=== PATIENT | female | born 2000 | race Caucasian/White ===

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

== ENCOUNTER 2024-06-01 07:41 | Inpatient (IN) ==
[2024-06-01] MEDS ORDERED: LIDOCAINE 1% LOCAL 20 ML VIAL INFIL PRN (07:56)
[2024-06-01 08:28] LABS: Hematocrit (blood only) 34.9 % (37.0-47.0); Hemoglobin 12.3 g/dl (12.0-16.0); Mean Corpuscular Hemoglobin 31.1 pg (25.0-34.0); Mean Corpuscular Hgb Conc 35.2 g/dL (32.0-36.0); Mean Corpuscular Volume 88.4 fL (80.0-100.0); Mean Platelet Volume 11.3 fL (9.4-12.4); Platelet Count 218 K/uL (130-400); RDW Coefficient of Variation 13.3 % (11.5-14.5); RDW Standard Deviation 43.4 fL (36.4-46.3); Red Blood Count 3.95 M/uL (4.20-5.40); White Blood Count 10.95 K/ul (4.8-10.8)
[2024-06-01] MEDS: OXYTOCIN 30 UNITS/NSS 30 UNITS/500 ML BAG IV PRN (08:30)
[2024-06-01] MEDS: LACTATED RINGER'S 1,000 ML IV SCH (08:30)
[2024-06-01 08:45] LABS: Alanine Aminotransferase 14 U/L (7-52); Albumin Globulin Ratio 1.3 (0.9-2); Albumin Level 3.5 gm/dl (3.4-5.0); Alkaline Phosphatase 148 U/L (34-104); Anion Gap 7 (3-11); Aspartate Aminotransferase 18 U/L (13-39); BUN Creatinine Ratio 15.9 (10-20); Bilirubin Direct 0.1 mg/dl (0-0.2); Bilirubin,Total 0.4 mg/dl (0.2-1.0); Blood Urea Nitrogen 10 mg/dl (6-23); Carbon Dioxide 22 mmol/L (21-32); Chloride 108 mmol/L (98-107); Globulin 2.7 gm/dl (2.5-4.0); Glucose 105 mg/dl (70-99(Fasting)); Potassium 4.3 mmol/L (3.5-5.1); Sodium 137 mmol/L (136-145); Total Protein 6.2 gm/dl (6.0-8.3)
--- NOTE | 2024-06-01 09:17 | History & Physical Report ---
Date of Service June 01, 2024 Assessment & Plan (1) 37 weeks gestation of : (2) Pre-eclampsia superimposed on chronic hypertension: (3) Encounter for induction of labor: Plan admit, iv, labs. hinton placed. fhts categ 1. add pitocin. denies concerns. Admission and Anticipated Discharge Date Admission Date: June 01, 2024 History of Present Illness Chief Complaint: induction Primary Care Provider: Carlotta Tirado, DO 24yo at 37+wks kamari presents to LD with cc of chtn with superimposed preeclampsia for planned induction. She has unfavorable cx based on exam yesterday in office, with plan for hinton balloon placement and pitocin today. No concerns. No plasencia. Some swelling. No ctx, rom or vb. +FM. PNC c/b 1. CHTN on meds 2. history of CT, treated, neg at 36wks. PNL rh pos, ri, gbs neg OBH: g1 GYNH: nl paps, CT+ this Allergies Allergy/AdvReac Type Severity Reaction Status Date / Time No Known Drug Allergies Allergy Unknown Verified 06/01/24 08:12 Home Medications Medication Instructions Recorded Confirmed Type famotidine 20 mg tablet 20 mg PO BID #180 tabs 12/07/23 06/01/24 Rx fluoxetine 20 mg capsule 20 mg PO DAILY #90 caps 12/26/23 06/01/24 Rx aspirin 81 mg capsule 81 mg PO DAILY 04/30/24 06/01/24 History vits no.124-ferrous fum 1 tab PO DAILY 04/30/24 06/01/24 History 27 mg iron-folic acid 800 mcg tablet ( Vitamin) breast pump #1 ea 05/07/24 05/31/24 Rx labetalol 200 mg tablet 200 mg PO BID #60 tabs 05/25/24 06/01/24 Rx Patient History Medical History Varicella vaccination Weight gain Menorrhagia Facial trauma Concussion Closed head injury Surgical History No pertinent past surgical history Family History Grandmother Breast cancer Stroke Hypertension Mother Hypertension Grandfather Lung cancer Denies family history of Rheumatoid arthritis Sudden SIDS (sudden infant syndrome) Ovarian cancer Prostate cancer Diabetes Deep vein thrombosis Osteoporosis Coronary heart disease Dyslipidemia Cerebral aneurysm Alzheimer disease Bipolar disorder Clotting disorder Crohn's disease Dementia Depression Heart disease Kidney disease Myocardial infarction Osteoarthritis Schizophrenia Congenital kidney disease Gestational diabetes COPD (chronic obstructive pulmonary disease) Colorectal cancer Pulmonary embolism Lung disease Cancer Ulcerative colitis Colonic polyp Asthma Cystic kidney disease Social History Smoking Status: Never smoker Do You Dip or Chew Tobacco: No; Hx Alcohol Use: No Hx Substance Use: No Preferred Language: Romanian Communication Ability: Effective Visual Impairment: No Limitations Hearing Ability: Normal Machine Filler Shredder Required: No Beliefs That Will Affect Care: None marital status: marital status details: Ashwin Nielsen (25) [phone] Current Living Situation: Spouse Current Living Situation Comment: Patient lives with spouse, 2 dogs current occupational status: employed current occupation: [employer] Feels Safe at Home: Yes Safety Concerns: Feels Safe At This Time Childhood Exposure to Second-Hand Smoke: No during the past year weight has: remained stable Dental Care, Regularly: Yes Physical Activity Frequency: 1-2 Times per Week Seatbelt Use: always Sunscreen Use: No Review of Systems as per Subjective / HPI Physical Exam Constitutional: WD/WN, vitals as above Respiratory: normal respiratory effort, lungs clear to auscultation Cardiovascular: Rate/Rhythm: regular rate and regular rhythm Gastrointestinal (Abdomen): soft gravid nt efw 7-8# Musculoskeletal: Tr edema nontender calves Neurologic: pateller dtrs 0-+1 no clonus Psychiatric: A+Ox3, euthymic affect Genitourinary: Manual OB Exam: + cervical dilation (visually fingertip) OB Exam Monitor Tracing: + external FHT monitor used, + external uterine monitor used (no ctx), + category I and + normal FHT variability PROCEDURE: sse cx visualized, grasped on ant lip with ring forcep, hinton through os and balloon inflated with 40cc sterile water. Spec removed, hinton taped to leg. pt kiran well. Results & Data Vital Signs (Past 12 Hours) Vital Signs Temp Pulse Resp BP 06/01/24 08:40 98.6 F 85 16 141/78 H 06/01/24 08:38 85 141/78 H 06/01/24 07:57 78 152/94 H Coding Level of Care Code None Diagnoses 37 weeks gestation of Z3A.37 Pre-eclampsia superimposed on chronic hypertension O11.9 Encounter for induction of labor Z34.90 CPT Codes Misx Procedure Codes - 50432 Placement of cervical dilator: 69613 Placement of cervical dilator ([id number])
--- NOTE | 2024-06-01 13:36 | Labor Progress Brief Note ---
Date of Service June 01, 2024 Subjective hinton bulb out, worse than period cramps but manageable Assessment & Plan (1) 37 weeks gestation of : (2) Pre-eclampsia superimposed on chronic hypertension: (3) Encounter for induction of labor: Plan 24 yo G1 at 37 1/7 [facility]ga presents for cHTN w/ superimposed pre-eclampsia w/o SF iol VSS, mild range Fetus cat 1 Labor - pit at 19, pt agreeable to arom. Continue induction GBS neg epidural prn Admission and Anticipated Discharge Date Admission Date: June 01, 2024 Physical Exam Genitourinary: Manual OB Exam: + cervical dilation 3 cm, + cervical effacement 50%, + station -2 and + amniotic fluid (arom clear) OB Exam Monitor Tracing: + external FHT monitor used, + external uterine monitor used (q3-4) and + category I (130/mod/+accel/-decel) Results & Data Vital Signs (Past 12 Hours) Vital Signs Temp Pulse Resp BP 06/01/24 13:09 77 06/01/24 13:09 140/85 06/01/24 12:03 80 06/01/24 12:03 149/84 H 06/01/24 11:01 70 06/01/24 11:01 157/93 H 06/01/24 09:33 72 06/01/24 09:33 146/86 H 06/01/24 09:32 83 06/01/24 09:32 155/101 H 06/01/24 08:40 98.6 F 85 16 141/78 H 06/01/24 08:38 85 141/78 H 06/01/24 07:57 78 152/94 H Coding Level of Care Code None Diagnoses 37 weeks gestation of Z3A.37 Pre-eclampsia superimposed on chronic hypertension O11.9 Encounter for induction of labor Z34.90
--- NOTE | 2024-06-01 16:23 | Anesthesiology Consultation ---
Date of Service June 01, 2024 Assessment & Plan Chart Review Chart Review: Patient NOT seen in Pre Admission Testing and Acceptable Risk for Labor Epidural Consults Requested none ASA ASA3 Proposed Anesthesia Anesthesia Type: Labor Epidural Risk / Benefits Reviewed With: PT / POA / Parent / Guardian, Accepts Plan and Informed Consent Obtained History Height/Weight Height: 5 ft 8 in Weight: 119.295 kg Allergies Allergy/AdvReac Type Severity Reaction Status Date / Time No Known Drug Allergies Allergy Unknown Verified 06/01/24 08:12 Medications Home Medications Medication Instructions Recorded Confirmed Last Taken famotidine 20 mg tablet 20 mg PO BID #180 tabs 12/07/23 06/01/24 06/01/24 06:30 fluoxetine 20 mg capsule 20 mg PO DAILY #90 caps 12/26/23 06/01/24 06/01/24 06:30 aspirin 81 mg capsule 81 mg PO DAILY 04/30/24 06/01/24 05/31/24 20:30 vits no.124-ferrous fum 1 tab PO DAILY 04/30/24 06/01/24 06/01/24 06:30 27 mg iron-folic acid 800 mcg tablet ( Vitamin) breast pump #1 ea 05/07/24 05/31/24 Unknown labetalol 200 mg tablet 200 mg PO BID #60 tabs 05/25/24 06/01/24 06/01/24 06:30 Active Medications Generic Name Dose Route Start Last Admin Trade Name Freq PRN Reason Stop Dose Admin Oxytocin 30 units in 500 mls @ 23 mls/hr 06/01/24 07:57 06/01/24 15:30 Pitocin 30 Units/Nss IV 06/03/24 07:56 1.38 units/hr .[id number] PRN 23 mls/hr Labor Induction/Augmentation Titration Protocol 1.38 UNITS/HR Lactated Ringer's 1,000 mls @ 125 mls/hr 06/01/24 14:30 06/01/24 08:30 Lr IV 06/02/24 14:29 50 mls/hr .Q8H MICHAEL Administration NPO Date Last Intake of Fluids: 06/01/24 Time Last Intake of Fluids: 14:30 Date Last Intake of Solids: 06/01/24 Time Last Intake of Solids: 07:00 Past Medical History Medical History Varicella vaccination Weight gain Menorrhagia Facial trauma Concussion Closed head injury Exercise / Class Metabolic Activity II 4-5 Yardwork/Stairs/Walk up hill Past Family History Family History Grandmother Breast cancer Stroke Hypertension Mother Hypertension Grandfather Lung cancer Denies family history of Rheumatoid arthritis Sudden SIDS (sudden syndrome) Ovarian cancer Prostate cancer Diabetes Deep vein thrombosis Osteoporosis Coronary heart disease Dyslipidemia Cerebral aneurysm Alzheimer disease Bipolar disorder Clotting disorder Crohn's disease Dementia Depression Heart disease Kidney disease Myocardial infarction Osteoarthritis Schizophrenia Congenital kidney disease Gestational diabetes COPD (chronic obstructive pulmonary disease) Colorectal cancer Pulmonary embolism Lung disease Cancer Ulcerative colitis Colonic polyp Asthma Cystic kidney disease Past Surgical History Surgical History No pertinent past surgical history Past Anesthesia History No Hx of Anesthesia Complications and No Family Hx of Anesthesia Complications History of PONV No Hx of PONV and No Hx of Motion Sickness Social History Smoking Status: Never smoker Do You Dip or Chew Tobacco: No Hx Alcohol Use: No Hx Substance Use: No substance use type: does not use Review of Systems ROS Unobtainable: All systems reviewed & are unremarkable except as noted in HPI & below Physical Exam Vital Signs Last Vital Signs Temp 36.7 C 06/01/24 15:01 Pulse 71 06/01/24 15:02 Resp 16 06/01/24 15:01 BP 143/89 H 06/01/24 15:02 ENMT Mouth: no TMJ abnormality Thyromental Distance: > or= 3.5 Finger Breadths Mallampati Class: II Neck normal visual inspection and trachea midline; neck extension not limited Respiratory normal respiratory effort Auscultation: lungs clear to auscultation bilaterally Cardiovascular Rate/Rhythm: regular rate and regular rhythm Heart Sounds: no murmur Musculoskeletal Spine: normal cervical ROM Extremities: full ROM of extremities Neurologic moves all extremities Psychiatric Orientation: alert and oriented x 3 Testing Laboratory Results 06/01/24 08:16 06/01/24 08:16
[2024-06-01] MEDS: fentaNYL citrate PF 100 MCG/2 ML VIAL ONE (16:40)
[2024-06-01] MEDS: BUPIVACAINE 0.25% PF 30 ML VIAL ONE (16:40)
[2024-06-01] MEDS: LIDOCAINE 2%/EPINEPHRINE 1:200,000 20 ML PF ONE (16:40)
[2024-06-01] MEDS: fentANYL 2 MCG/ML BUPIVacaine 0.125%-NSS 100ML BAG ONE (16:43)
[2024-06-01] MEDS ORDERED: SODIUM CHLORIDE 0.9% PF INJ 10 ML VIAL EPI PRN (16:45)
[2024-06-01] MEDS ORDERED: fentaNYL citrate PF 100 MCG/2 ML VIAL EPI PRN (16:45)
[2024-06-01] MEDS ORDERED: ePHEDrine sulfate 50 MG/ML AMP IV PRN (16:45)
[2024-06-01] MEDS ORDERED: LIDOCAINE 2% MPF LOCAL 5 ML VIAL EPI PRN (16:45)
[2024-06-01] MEDS ORDERED: ROPIVACAINE 0.5% PF 5 MG/ML 20 ML VIAL EPI PRN (16:45)
[2024-06-01] MEDS ORDERED: NALOXONE HCL 0.4 MG/1 ML VIAL/CARP IV PRN (16:45)
[2024-06-01] MEDS ORDERED: NALOXONE HCL 1 MG in SODIUM CHLORIDE 0.9% 1,000 ML IV PRN (16:45)
[2024-06-01] MEDS ORDERED: diphenhydrAMINE 50 MG/ML VIAL IV PRN (16:45)
[2024-06-01] MEDS ORDERED: BUPIVACAINE 0.25% PF 30 ML VIAL EPI PRN (16:45)
[2024-06-01] MEDS ORDERED: NALBUPHINE HCL INJ 10 MG/ML AMP IV PRN (16:45)
[2024-06-01] MEDS: SODIUM CHLORIDE 0.9% PF INJ 10 ML VIAL ONE (16:52)
[2024-06-01] MEDS: BUPIVACAINE 0.25% PF 30 ML VIAL EPI STA (16:53)
[2024-06-01] MEDS: LIDOCAINE 2%/EPINEPHRINE 1:200,000 20 ML PF EPI STA (16:54)
[2024-06-01] MEDS: fentaNYL citrate PF 100 MCG/2 ML VIAL EPI STA (16:54)
[2024-06-01] MEDS: SODIUM CHLORIDE 0.9% PF INJ 10 ML VIAL EPI STA (16:54)
--- NOTE | 2024-06-01 17:32 | Labor Progress Brief Note ---
Date of Service June 01, 2024 Subjective comfortable w/ epidural Assessment & Plan (1) 37 weeks gestation of : (2) Pre-eclampsia superimposed on chronic hypertension: (3) Encounter for induction of labor: Plan 24 yo G1 at 37 1/7 wga presents for cHTN w/ superimposed pre-eclampsia w/o SF iol VSS, mild range Fetus cat 1 Labor - pit at 23, station lower. Continue induction GBS neg epidural in place Admission and Anticipated Discharge Date Admission Date: June 01, 2024 Physical Exam Genitourinary: Manual OB Exam: + cervical dilation 4 cm, + cervical effacement 50% and + station -1 OB Exam Monitor Tracing: + external FHT monitor used, + external uterine monitor used (q3-4) and + category I (130/mod/+accel/-decel) Results & Data Vital Signs (Past 12 Hours) Vital Signs Temp Pulse Resp BP Pulse Ox 06/01/24 17:26 96 06/01/24 17:26 79 06/01/24 17:21 97 06/01/24 17:21 84 06/01/24 17:19 89 06/01/24 17:19 142/83 H 06/01/24 17:16 95 06/01/24 17:16 95 H 06/01/24 17:11 96 06/01/24 17:11 81 06/01/24 17:06 96 06/01/24 17:06 80 06/01/24 17:02 100 H 06/01/24 17:02 120/67 06/01/24 17:01 96 06/01/24 17:01 93 H 06/01/24 16:57 16 06/01/24 16:57 99.0 F 16 06/01/24 16:56 96 06/01/24 16:56 75 06/01/24 16:51 96 06/01/24 16:51 77 06/01/24 16:47 74 06/01/24 16:47 119/63 06/01/24 16:46 96 06/01/24 16:46 82 06/01/24 16:44 80 06/01/24 16:44 125/64 06/01/24 16:41 98 06/01/24 16:41 77 06/01/24 16:41 144/89 H 06/01/24 16:39 73 06/01/24 16:39 185/96 H 06/01/24 16:36 99 06/01/24 16:36 84 06/01/24 15:02 71 06/01/24 15:02 143/89 H 06/01/24 15:01 16 06/01/24 15:01 98.1 F 16 06/01/24 14:07 75 06/01/24 14:07 147/94 H 06/01/24 14:06 18 06/01/24 14:06 98.4 F 18 06/01/24 13:09 77 06/01/24 13:09 140/85 06/01/24 12:03 80 06/01/24 12:03 149/84 H 06/01/24 11:01 70 06/01/24 11:01 157/93 H 06/01/24 09:33 72 06/01/24 09:33 146/86 H 06/01/24 09:32 83 06/01/24 09:32 155/101 H 06/01/24 08:40 98.6 F 85 16 141/78 H 06/01/24 08:38 85 141/78 H 06/01/24 07:57 78 152/94 H Coding Level of Care Code None Diagnoses 37 weeks gestation of Z3A.37 Pre-eclampsia superimposed on chronic hypertension O11.9 Encounter for induction of labor Z34.90
[2024-06-01] MEDS: ePHEDrine sulfate 50 MG/ML AMP ONE (18:57)
--- NOTE | 2024-06-01 20:11 | Labor Progress Brief Note ---
Date of Service June 01, 2024 Subjective comfortable w/ epidural Assessment & Plan (1) 37 weeks gestation of : (2) Pre-eclampsia superimposed on chronic hypertension: (3) Encounter for induction of labor: Plan 24 yo G1 at 37 1/7 wga presents for cHTN w/ superimposed pre-eclampsia w/o SF iol VSS, mild range Fetus cat 1 Labor - pit at 25, IUPC placed to help monitor ctx and guide pit. Will max to 30 [address] epid[address] in [address] Admission and Anticipated Discharge Date Admission Date: June 01, 2024 Physical Exam Genitourinary: Manual OB Exam: + cervical dilation 4 cm, + cervical effacement 60% and + station -1 OB Exam Monitor Tracing: + external FHT monitor used, + intra-uterine pressure catheter used (placed, q4-5) and + category I (130/mod/+accel/-decel) Results & Data Vital Signs (Past 12 Hours) Vital Signs Temp Pulse Resp BP Pulse Ox 06/01/24 20:06 98 06/01/24 20:06 79 06/01/24 20:04 68 06/01/24 20:04 134/88 06/01/24 20:01 99 06/01/24 20:01 66 06/01/24 19:56 98 06/01/24 19:56 65 06/01/24 19:51 99 06/01/24 19:51 65 06/01/24 19:47 62 06/01/24 19:47 158/86 H 06/01/24 19:46 100 06/01/24 19:46 70 06/01/24 19:44 92 06/01/24 19:44 65 06/01/24 19:41 98 06/01/24 19:41 65 06/01/24 19:36 98 06/01/24 19:36 77 06/01/24 19:32 62 06/01/24 19:32 154/81 H 06/01/24 19:31 97 06/01/24 19:31 76 06/01/24 19:26 99 06/01/24 19:26 60 06/01/24 19:21 97 06/01/24 19:21 67 06/01/24 19:17 75 06/01/24 19:17 149/84 H 06/01/24 19:16 99 06/01/24 19:16 74 06/01/24 19:11 94 06/01/24 19:11 68 06/01/24 19:10 97.9 F 18 06/01/24 19:10 18 06/01/24 19:10 97.9 F 18 06/01/24 19:10 92 06/01/24 19:10 63 06/01/24 19:06 98 06/01/24 19:06 69 06/01/24 19:03 61 06/01/24 19:03 140/82 06/01/24 19:01 97 06/01/24 19:01 65 06/01/24 18:56 98 06/01/24 18:56 63 06/01/24 18:51 98 06/01/24 18:51 67 06/01/24 18:50 18 06/01/24 18:50 98.2 F 18 06/01/24 18:48 75 06/01/24 18:48 132/61 06/01/24 18:46 98 06/01/24 18:46 66 06/01/24 18:41 98 06/01/24 18:41 65 06/01/24 18:36 97 06/01/24 18:36 64 06/01/24 18:33 71 06/01/24 18:33 126/68 06/01/24 18:31 97 06/01/24 18:31 77 06/01/24 18:26 98 06/01/24 18:26 81 06/01/24 18:21 99 06/01/24 18:21 73 06/01/24 18:17 72 06/01/24 18:17 128/67 06/01/24 18:16 97 06/01/24 18:16 79 06/01/24 18:11 97 06/01/24 18:11 78 06/01/24 18:06 98 06/01/24 18:06 70 06/01/24 18:02 69 06/01/24 18:02 125/70 06/01/24 18:01 97 06/01/24 18:01 72 06/01/24 17:56 97 06/01/24 17:56 70 06/01/24 17:55 18 06/01/24 17:55 99.0 F 18 06/01/24 17:51 98 06/01/24 17:51 82 06/01/24 17:47 80 06/01/24 17:47 118/64 06/01/24 17:46 98 06/01/24 17:46 77 06/01/24 17:41 98 06/01/24 17:41 83 06/01/24 17:36 97 06/01/24 17:36 65 06/01/24 17:33 81 06/01/24 17:33 117/65 06/01/24 17:31 98 06/01/24 17:31 83 06/01/24 17:26 96 06/01/24 17:26 79 06/01/24 17:21 97 06/01/24 17:21 84 06/01/24 17:19 89 06/01/24 17:19 142/83 H 06/01/24 17:16 95 06/01/24 17:16 95 H 06/01/24 17:11 96 06/01/24 17:11 81 06/01/24 17:06 96 06/01/24 17:06 80 06/01/24 17:02 100 H 06/01/24 17:02 120/67 06/01/24 17:01 96 06/01/24 17:01 93 H 06/01/24 16:57 16 06/01/24 16:57 99.0 F 16 06/01/24 16:56 96 06/01/24 16:56 75 06/01/24 16:51 96 06/01/24 16:51 77 06/01/24 16:47 74 06/01/24 16:47 119/63 06/01/24 16:46 96 06/01/24 16:46 82 06/01/24 16:44 80 06/01/24 16:44 125/64 06/01/24 16:41 98 06/01/24 16:41 77 06/01/24 16:41 144/89 H 06/01/24 16:39 73 06/01/24 16:39 185/96 H 06/01/24 16:36 99 06/01/24 16:36 84 06/01/24 15:02 71 06/01/24 15:02 143/89 H 06/01/24 15:01 16 06/01/24 15:01 98.1 F 16 06/01/24 14:07 75 06/01/24 14:07 147/94 H 06/01/24 14:06 18 06/01/24 14:06 98.4 F 18 06/01/24 13:09 77 06/01/24 13:09 140/85 06/01/24 12:03 80 06/01/24 12:03 149/84 H 06/01/24 11:01 70 06/01/24 11:01 157/93 H 06/01/24 09:33 72 06/01/24 09:33 146/86 H 06/01/24 09:32 83 06/01/24 09:32 155/101 H 06/01/24 08:40 98.6 F 85 16 141/78 H 06/01/24 08:38 85 141/78 H Coding Level of Care Code None Diagnoses 37 weeks gestation of Z3A.37 Pre-eclampsia superimposed on chronic hypertension O11.9 Encounter for induction of labor Z34.90
[2024-06-01] MEDS: LABETALOL HCL 200 MG TAB PO SCH (20:31)
--- NOTE | 2024-06-01 23:49 | Labor Progress Brief Note ---
Date of Service June 01, 2024 Subjective comfortable w/ epidural Assessment & Plan (1) 37 weeks gestation of : (2) Pre-eclampsia superimposed on chronic hypertension: (3) Encounter for induction of labor: Plan 24 yo G1 at 37 1/7 wga presents for cHTN w/ superimposed pre-eclampsia w/o SF iol VSS, mild range Fetus cat 1 Labor - pit at 30, IUPC in place, periods of adequacy noted and progress noted as well. Will continue at 30 GBS neg epid[address] in [address] Admission and Anticipated Discharge Date Admission Date: June 01, 2024 Physical Exam Genitourinary: Manual OB Exam: + cervical dilation 5 cm, + cervical effacement 70% and + station -1 OB Exam Monitor Tracing: + external FHT monitor used, + intra-uterine pressure catheter used (periods of adequacy, q3) and + category II (135/mod/+accel/+early and intermit variable) Results & Data Vital Signs (Past 12 Hours) Vital Signs Temp Pulse Resp BP Pulse Ox 06/01/24 23:41 97 06/01/24 23:41 114 H 06/01/24 23:36 98 06/01/24 23:36 96 H 06/01/24 23:32 79 06/01/24 23:32 135/77 06/01/24 23:31 97 06/01/24 23:31 79 06/01/24 23:26 97 06/01/24 23:26 72 06/01/24 23:21 98 06/01/24 23:21 74 06/01/24 23:18 75 06/01/24 23:18 141/76 H 06/01/24 23:16 99 06/01/24 23:16 72 06/01/24 23:11 99 06/01/24 23:11 78 06/01/24 23:06 99 06/01/24 23:06 75 06/01/24 23:02 77 06/01/24 23:02 139/87 06/01/24 23:01 98 06/01/24 23:01 78 06/01/24 22:56 97 06/01/24 22:56 87 06/01/24 22:51 96 06/01/24 22:51 81 06/01/24 22:47 77 06/01/24 22:47 136/79 06/01/24 22:46 96 06/01/24 22:46 81 06/01/24 22:41 96 06/01/24 22:41 79 06/01/24 22:36 96 06/01/24 22:36 79 06/01/24 22:32 76 06/01/24 22:32 131/80 06/01/24 22:31 97 06/01/24 22:31 78 06/01/24 22:26 97 06/01/24 22:26 76 06/01/24 22:21 96 06/01/24 22:21 79 06/01/24 22:17 78 06/01/24 22:17 122/74 06/01/24 22:16 95 06/01/24 22:16 82 06/01/24 22:11 96 06/01/24 22:11 78 06/01/24 22:07 94 06/01/24 22:07 88 06/01/24 22:06 95 06/01/24 22:06 85 06/01/24 22:02 82 06/01/24 22:02 126/74 06/01/24 22:01 95 06/01/24 22:01 80 06/01/24 21:56 95 06/01/24 21:56 80 06/01/24 21:51 96 06/01/24 21:51 82 06/01/24 21:47 77 06/01/24 21:47 126/72 06/01/24 21:46 95 06/01/24 21:46 79 06/01/24 21:41 97 06/01/24 21:41 74 06/01/24 21:36 98 06/01/24 21:36 71 06/01/24 21:32 71 06/01/24 21:32 138/83 06/01/24 21:31 98 06/01/24 21:31 71 06/01/24 21:26 98 06/01/24 21:26 68 06/01/24 21:21 99 06/01/24 21:21 75 06/01/24 21:18 64 06/01/24 21:18 140/82 06/01/24 21:16 99 06/01/24 21:16 73 06/01/24 21:11 98 06/01/24 21:11 71 06/01/24 21:06 96 06/01/24 21:06 78 06/01/24 21:05 78 06/01/24 21:05 155/78 H 06/01/24 21:03 70 06/01/24 21:03 181/77 H 06/01/24 21:01 98 06/01/24 21:01 88 06/01/24 21:00 18 06/01/24 21:00 97.9 F 18 06/01/24 20:56 97 06/01/24 20:56 71 06/01/24 20:51 96 06/01/24 20:51 74 06/01/24 20:47 72 06/01/24 20:47 148/78 H 06/01/24 20:46 98 06/01/24 20:46 62 06/01/24 20:41 99 06/01/24 20:41 77 06/01/24 20:36 99 06/01/24 20:36 74 06/01/24 20:34 78 06/01/24 20:34 145/73 H 06/01/24 20:31 98 06/01/24 20:31 93 H 06/01/24 20:26 96 06/01/24 20:26 81 06/01/24 20:21 97 06/01/24 20:21 73 06/01/24 20:18 71 06/01/24 20:18 125/58 L 06/01/24 20:16 98 06/01/24 20:16 68 06/01/24 20:11 98 06/01/24 20:11 67 06/01/24 20:06 98 06/01/24 20:06 79 06/01/24 20:04 68 06/01/24 20:04 134/88 06/01/24 20:01 99 06/01/24 20:01 66 06/01/24 19:56 98 06/01/24 19:56 65 06/01/24 19:51 99 06/01/24 19:51 65 06/01/24 19:47 62 06/01/24 19:47 158/86 H 06/01/24 19:46 100 06/01/24 19:46 70 06/01/24 19:44 92 06/01/24 19:44 65 06/01/24 19:41 98 06/01/24 19:41 65 06/01/24 19:36 98 06/01/24 19:36 77 06/01/24 19:32 62 06/01/24 19:32 154/81 H 06/01/24 19:31 97 06/01/24 19:31 76 06/01/24 19:26 99 06/01/24 19:26 60 06/01/24 19:21 97 06/01/24 19:21 67 06/01/24 19:17 75 06/01/24 19:17 149/84 H 06/01/24 19:16 99 06/01/24 19:16 74 06/01/24 19:11 94 06/01/24 19:11 68 06/01/24 19:10 97.9 F 18 06/01/24 19:10 18 06/01/24 19:10 97.9 F 18 06/01/24 19:10 92 06/01/24 19:10 63 06/01/24 19:06 98 06/01/24 19:06 69 06/01/24 19:03 61 06/01/24 19:03 140/82 06/01/24 19:01 97 06/01/24 19:01 65 06/01/24 18:56 98 06/01/24 18:56 63 06/01/24 18:51 98 06/01/24 18:51 67 06/01/24 18:50 18 06/01/24 18:50 98.2 F 18 06/01/24 18:48 75 06/01/24 18:48 132/61 06/01/24 18:46 98 06/01/24 18:46 66 06/01/24 18:41 98 06/01/24 18:41 65 06/01/24 18:36 97 06/01/24 18:36 64 06/01/24 18:33 71 06/01/24 18:33 126/68 06/01/24 18:31 97 06/01/24 18:31 77 06/01/24 18:26 98 06/01/24 18:26 81 06/01/24 18:21 99 06/01/24 18:21 73 06/01/24 18:17 72 06/01/24 18:17 128/67 06/01/24 18:16 97 06/01/24 18:16 79 06/01/24 18:11 97 06/01/24 18:11 78 06/01/24 18:06 98 06/01/24 18:06 70 06/01/24 18:02 69 06/01/24 18:02 125/70 06/01/24 18:01 97 06/01/24 18:01 72 06/01/24 17:56 97 06/01/24 17:56 70 06/01/24 17:55 18 06/01/24 17:55 99.0 F 18 06/01/24 17:51 98 06/01/24 17:51 82 06/01/24 17:47 80 06/01/24 17:47 118/64 06/01/24 17:46 98 06/01/24 17:46 77 06/01/24 17:41 98 06/01/24 17:41 83 06/01/24 17:36 97 06/01/24 17:36 65 06/01/24 17:33 81 06/01/24 17:33 117/65 06/01/24 17:31 98 06/01/24 17:31 83 06/01/24 17:26 96 06/01/24 17:26 79 06/01/24 17:21 97 06/01/24 17:21 84 06/01/24 17:19 89 06/01/24 17:19 142/83 H 06/01/24 17:16 95 06/01/24 17:16 95 H 06/01/24 17:11 96 06/01/24 17:11 81 06/01/24 17:06 96 06/01/24 17:06 80 06/01/24 17:02 100 H 06/01/24 17:02 120/67 06/01/24 17:01 96 06/01/24 17:01 93 H 06/01/24 16:57 16 06/01/24 16:57 99.0 F 16 06/01/24 16:56 96 06/01/24 16:56 75 06/01/24 16:51 96 06/01/24 16:51 77 06/01/24 16:47 74 06/01/24 16:47 119/63 06/01/24 16:46 96 06/01/24 16:46 82 06/01/24 16:44 80 06/01/24 16:44 125/64 06/01/24 16:41 98 06/01/24 16:41 77 06/01/24 16:41 144/89 H 06/01/24 16:39 73 06/01/24 16:39 185/96 H 06/01/24 16:36 99 06/01/24 16:36 84 06/01/24 15:02 71 06/01/24 15:02 143/89 H 06/01/24 15:01 16 06/01/24 15:01 98.1 F 16 06/01/24 14:07 75 06/01/24 14:07 147/94 H 06/01/24 14:06 18 06/01/24 14:06 98.4 F 18 06/01/24 13:09 77 06/01/24 13:09 140/85 06/01/24 12:03 80 06/01/24 12:03 149/84 H Coding Level of Care Code None Diagnoses 37 weeks gestation of Z3A.37 Pre-eclampsia superimposed on chronic hypertension O11.9 Encounter for induction of labor Z34.90
[2024-06-02] MEDS: CALCIUM CARBONATE 500 MG CHEWABLE TAB PO PRN (00:01)
[2024-06-02] MEDS: ONDANSETRON INJ 2 MG/ML 2 ML VIAL IV PRN (00:01)
[2024-06-02] MEDS: fentANYL 2 MCG/ML BUPIVacaine 0.125%-NSS 100ML BAG EPI PRN (01:19)
[2024-06-02] MEDS: OXYTOCIN 30 UNITS/NSS 30 UNITS/500 ML BAG IV PRN (03:51)
--- NOTE | 2024-06-02 03:57 | Delivery Summary ---
Vaginal Delivery Summary Date of Service June 02, 2024 Vaginal Delivery Summary [facility] PREOPERATIVE DIAGNOSIS: 1. Single intrauterine at 37 2/7 wga 2. Chronic hypertension with superimposed pre-eclampsia without severe features 3. Placental shift POSTOPERATIVE DIAGNOSIS: 1. Single intrauterine at 37 2/7 wga 2. Chronic hypertension with superimposed pre-eclampsia without severe features 3. Placental shift 4. Delivered PROCEDURE: 1. Normal spontaneous vaginal delivery. SURGEON: Vidya Jewell MD ANESTHESIA: Epidural. QUANTITATIVE BLOOD LOSS: 20 mL FLUIDS: Continuous LR. URINE OUTPUT: None. COMPLICATIONS: None. CONDITION: Stable. INDICATIONS: 24 yo G1 at 37 2/7 wga presented for IOL. Induction was begun with hinton bulb and pitocin. Following bulb expulsion, she underwent arom. She received an epidural for pain control. IUPC was placed to help guide pitocin and demonstrate contractions. She progressed to complete and desired to push FINDINGS: A viable male infant, weight pending with Apgars of 8 and 9 at 1 and 5 minutes respectively. SPECIMEN: Cord blood OPERATIVE REPORT: The patient progressed to 10 cm, 100% effaced and +2 station, pushed over intact perineum with anesthesia to deliver a viable male , weight and Apgars as above. Head of delivered in GAIL position. No nuchal cord was present. Body and shoulders were delivered without difficulty. was delivered to maternal abdomen and nursing staff. Delayed cord clamping was performed for 60 seconds. Cord was clamped and cut. Cord blood was obtained. Placenta delivered spontaneously intact with 3-vessel cord. IV oxytocin and fundal massage were given for excellent hemostasis. Vagina, cervix, perineum, and placenta were inspected. A periclitoral laceration was repaired in interrupted stitches with 4-0 vicryl. Right introital laceration was repaired using 3-0 vicryl. There was excellent hemostasis. Sponge and needle counts correct x2. No sponges were left behind. Mother and stable in immediate period. [facility] [place] Vaginal Delivery Charge Vaginal Delivery Codes: 15051 global code for the antepartum, delivery, and post- Delivery Type Details: [facility]
[2024-06-02] MEDS ORDERED: ACETAMINOPHEN 325 MG TAB PO PRN (04:48)
[2024-06-02] MEDS ORDERED: HYDROCORTISONE ACETATE 25 MG SUPP PR PRN (04:48)
[2024-06-02] MEDS ORDERED: IBUPROFEN 600 MG TAB PO PRN (04:48)
[2024-06-02] MEDS ORDERED: OXYTOCIN 30 UNITS/NSS 30 UNITS/500 ML BAG IV PRN (04:48)
[2024-06-02] MEDS: DIPHTHER/TETAN/PERTUS Vaccine (Tdap, Adol/Adult) 0.5mL IM ONE (05:35)
--- NOTE | 2024-06-02 08:07 | Anesthesia Procedure Note ---
Date of Service June 02, 2024 Anesthesia Post Epidural Note Vital Signs Vital Signs: Temp Pulse Resp BP Pulse Ox 36.8 C 93 H 18 154/92 H 97 06/02/24 05:50 06/02/24 06:08 06/02/24 05:50 06/02/24 06:08 06/02/24 04:21 Pain Intensity Lower Abdomen: Pain Intensity: 6 Notes Mental Status: alert / awake / arousable and participated in evaluation Nausea / Vomiting: adequately controlled Pain: adequately controlled Airway Patency, RR, SpO2: stable & adequate BP & HR: stable & adequate Hydration State: stable & adequate Neuraxial Anesthesia: was administered and sensory block is resolving Anesthetic Complications: no major complications apparent and Pt Satisfied with anesthetic care Epidural: Removed without complications and With tip intact
[2024-06-02] MEDS: FLUoxetine HCL 20 MG CAP PO SCH (08:10)
[2024-06-02] MEDS: DOCUSATE SODIUM 100 MG CAP PO SCH (08:10)
[2024-06-02] MEDS: FERROUS SULFATE 325 MG TAB PO SCH (08:10)
[2024-06-02] MEDS: PRENATAL VITAMIN 1 TAB PO SCH (08:10)
[2024-06-02] MEDS: BENZOCAINE 20% SPRY 85 APPLN/85 GM CAN EXT PRN (08:22)
[2024-06-02] MEDS: LABETALOL HCL 200 MG TAB PO SCH (09:13)
[2024-06-02] MEDS: FAMOTIDINE 20 MG TAB PO SCH (17:40)
--- NOTE | 2024-06-03 05:53 | Obstetrical Progress Note ---
Date of Service June 03, 2024 Assessment & Plan (1) care and examination: Plan stable, routine care. bps overall stable on her routine bp meds. plan 3-5day bp check. not sure about dc home. instructions reviewed. Day #:: 1 Subjective Ambulation: ambulating normally Voiding: no voiding problems Diet Tolerance:: regular diet Lochia:: Small Feeding Type:: breast feeding no plasencia or visual change no pain issues. Constitutional: + as per Subjective / HPI Physical Exam Constitutional WD/WN, vitals as above Respiratory normal respiratory effort, lungs clear to auscultation Cardiovascular Rate/Rhythm: regular rate and regular rhythm Gastrointestinal (Abdomen) Inspection/Auscultation: abdomen normal to inspection Percussion/Palpation: abdomen soft fundus firm 2 cm below umbilicus Musculoskeletal nt calves no edema Neurologic grossly normal Psychiatric A+Ox3, euthymic affect Results & Data Vital Signs (Past 12 Hours) Vital Signs Temp Pulse Resp BP Pulse Ox O2 Del Method 06/03/24 04:15 97.9 F 75 16 128/71 97 Room Air 06/02/24 23:45 97.7 F 87 16 120/69 97 Room Air 06/02/24 20:50 134/74 06/02/24 19:50 98.1 F 85 18 146/82 H 98 Room Air
[2024-06-03] MEDS: bisacodyL 5 MG TABEC PO SCH (20:42)
[2024-06-04] MEDS ORDERED: bisacodyL 10 MG SUPP PR PRN (04:48)
--- NOTE | 2024-06-04 06:54 | Obstetrical Progress Note ---
Date of Service June 04, 2024 Assessment & Plan (1) care and examination: Plan stable, routine care. bps overall stable on her routine bp meds. f/u 6 wks. instructions reviewed. shaggy alicea. . Day #:: 2 Subjective Ambulation: ambulating normally Voiding: no voiding problems Diet Tolerance:: regular diet Lochia:: Small Feeding Type:: breast feeding no plasencia or visual change no pain issues. Constitutional: + as per Subjective / HPI Physical Exam Constitutional WD/WN, vitals as above Respiratory normal respiratory effort, lungs clear to auscultation Cardiovascular Rate/Rhythm: regular rate and regular rhythm Gastrointestinal (Abdomen) Inspection/Auscultation: abdomen normal to inspection Percussion/Palpation: abdomen soft fundus firm 2 cm below umbilicus Musculoskeletal nt calves no edema Neurologic grossly normal Psychiatric A+Ox3, euthymic affect Results & Data Vital Signs (Past 12 Hours) Vital Signs Temp Pulse Resp BP O2 Del Method 06/03/24 23:35 98.1 F 77 16 121/73 Room Air 06/03/24 20:40 131/87
[2024-06-04 08:44] VITALS: BP 126/74; PULSE 85; RESP 18; TEMP 98.2; O2SAT 96
== END 2024-06-04 14:50 | disposition home or self-care (01) | DRG 768 ==
LOC: 4S1 07:41 → 4E1 06-02 08:15